=== PATIENT | male | born 1985 | race Caucasian/White ===

== ENCOUNTER 2016-06-02 16:05 | Emergency (ER) | payer BC ==
[~2016-06-02] VITALS: Ht 188 cm; Wt 70.3 kg
--- NOTE | 2016-06-02 17:15 | NUR ---
DR FARLEY AT THE BEDSIDE FOR EVAL AND EXAM.
[2016-06-02] MEDS ORDERED: IV NORMAL SALINE 1000 ML BAG IV ONE (17:30)
[2016-06-02] MEDS ORDERED: KETOROLAC TROMETHAMINE 15 MG INJ IV ONE (17:30)
[2016-06-02 17:33] LABS: *BILIRUBIN,URIN NEGATIVE (NEGATIVE); *BLOOD, URINE 3+ (NEGATIVE); *CLARITY,URINE SLIGHTLY CLOUDY (CLEAR); *COLOR,URINE YELLOW (YELLOW); *KETONES,URINE NEGATIVE (NEGATIVE); *PROTEIN,URINE 1+ (NEGATIVE); *UROBILINOGEN,URINE 0.2 E.U./dl (NORMAL); LEUKOCYTE ESTERASE ,URINE NEGATIVE (NEGATIVE); NITRITE, URINE NEGATIVE (NEGATIVE); PH,URINE 5.5 (5.0-8.0); UGLUCOSE NEGATIVE (NEGATIVE)
[2016-06-02] MEDS ORDERED: KETOROLAC TROMETHAMINE 15 MG INJ ONE (17:41)
[2016-06-02 17:43] LABS: BACTERIA,URINE NONE SEEN /HPF (NONE SEEN); RBC,URINE TNTC /HPF (0-3); SQUAMOUS EPITHELIAL CELL,UR FEW /HPF (NONE SEEN); WBC,URINE 0-3 /HPF (0-3)
[2016-06-02 17:43] LABS: BASOPHILS % (AUTO) 0.5 % (0.0-2.0); EOSINOPHILS # (AUTO) 0.2 K/uL (0.0-0.7); HEMOGLOBIN 15.4 g/dL (12.5-16.3); LYMPHOCYTES % (AUTO) 25.5 % (20.5-51.5); MEAN CORPUSCULAR HEMOGLOBIN 30.4 uug (23.8-33.4); MEAN CORPUSCULAR HGB CONC 34 g/dL (32.5-36.3); MEAN CORPUSCULAR VOLUME 88.7 fL (73.0-96.2); MONOCYTES # (AUTO) 0.4 K/uL (2.0-10.0); MONOCYTES % (AUTO) 5.4 % (0.0-11.0); NEUTROPHILS # (AUTO) 5.3 K/uL (1.8-8.9); NEUTROPHILS % (AUTO) 66.6 % (38.5-71.5); PLATELET COUNT (AUTO) 201 K/uL (152-348); RED BLOOD CELL COUNT(AUTO) 5.07 MIL/uL (4.06-5.63); RED CELL DISTRIBUTION WIDTH 12.2 % (12.1-16.2); WHITE BLOOD COUNT (AUTO) 7.9 K/uL (3.6-10.2)
[2016-06-02 17:44] LABS: CALCIUM 8.9 mg/dL (8.5-10.1); POTASSIUM 3.9 mmol/L (3.5-5.1)
[2016-06-02 17:50] LABS: ALBUMIN 3.9 g/dL (3.4-5.0); BILIRUBIN,DIRECT 0.1 mg/dL (0.0-0.2); BILIRUBIN,TOTAL 0.5 mg/dL (0.2-1.0)
--- NOTE | 2016-06-02 18:39 | NUR ---
PT BACK FROM CT, STATE PAIN IS BETTER.
--- NOTE | 2016-06-02 19:00 | NUR ---
[facility] REPORT GIVEN TO
--- NOTE | 2016-06-02 19:58 | NUR ---
Patient discharged to home in stable conditon. Written and verbal after care instructions given. Patient verbalizes understanding of instructions.
[2016-06-02 20:01] VITALS: BP 115/72
== END 2016-06-02 19:58 | disposition home or self-care (01) ==
LOC: ER 16:05
DX: R10.32 Left lower quadrant pain (principal); R10.31 Right lower quadrant pain; R31.9 Hematuria, unspecified; G43.909 Migraine, unspecified, not intractable, without status migrainosus; J44.9 Chronic obstructive pulmonary disease, unspecified; F10.20 Alcohol dependence, uncomplicated; F17.200 Nicotine dependence, unspecified, uncomplicated
CPT/HCPCS: 36415; 74176; 76870; 80048; 80076; 81001; 83690; 85025; 96361; 96374; 99285; A4663; J1885; J7030

== ENCOUNTER 2016-08-26 01:46 | Emergency (ER) | payer BC ==
[~2016-08-26] VITALS: Ht 188 cm; Wt 70.3 kg
[2016-08-26] MEDS ORDERED: FLUORESCEIN SODIUM 1 MG STRIP ONE (02:16)
[2016-08-26] MEDS ORDERED: TETRACAINE HCL 0.5% OPHT DROP 2 ML BOTTLE ONE (02:16)
--- NOTE | 2016-08-26 02:18 | NUR ---
Call placed to poison controlCristian, who stated that the product is listed as an irritant. No specific treatment or antidote. Recommendation is to irrigate eye for 15-30 minutes, eye exam, and follow up with opthamalogy.
[2016-08-26] MEDS ORDERED: FLUORESCEIN SODIUM 1 MG STRIP OP ONE (02:30)
[2016-08-26] MEDS ORDERED: TETRACAINE HCL 0.5% OPHT DROP 2 ML BOTTLE OP ONE (02:30)
--- NOTE | 2016-08-26 02:49 | NUR ---
Irrigation performed with john paul lens as ordered by ERMD. Patient tolerated procedure well.
--- NOTE | 2016-08-26 02:50 | NUR ---
Patient discharged to home in stable conditon. Written and verbal after care instructions given. Patient verbalizes understanding of instructions.
== END 2016-08-26 02:57 | disposition home or self-care (01) ==
LOC: ER 01:49
DX: H10.212 Acute toxic conjunctivitis, left eye (principal); G43.909 Migraine, unspecified, not intractable, without status migrainosus; J44.9 Chronic obstructive pulmonary disease, unspecified; F10.20 Alcohol dependence, uncomplicated; F17.200 Nicotine dependence, unspecified, uncomplicated
CPT/HCPCS: 99283; 99406; A4663; J7030

== ENCOUNTER 2016-09-01 00:14 | Emergency (ER) | payer BC ==
[~2016-09-01] VITALS: Ht 182.9 cm; Wt 79.4 kg
[2016-09-01] MEDS: SUMATRIPTAN SUCCINATE 6 MG/0.5 ML VIAL SQ ONE (00:47)
[2016-09-01] MEDS ORDERED: SUMATRIPTAN SUCCINATE 6 MG/0.5 ML VIAL SQ ONE (00:52)
--- NOTE | 2016-09-01 01:55 | NUR ---
Patient discharged to home in stable conditon. Written and verbal after care instructions given. Patient verbalizes understanding of instructions.
== END 2016-09-01 01:55 | disposition home or self-care (01) ==
LOC: ER 00:20
DX: G43.909 Migraine, unspecified, not intractable, without status migrainosus (principal); J44.9 Chronic obstructive pulmonary disease, unspecified
CPT/HCPCS: A4663; J3030